=== PATIENT | male | born 1980 | race Caucasian/White ===

== ENCOUNTER → 2018-08-21 | Outpatient (CLI) | payer BC ==
[~2018-08-21] MED LIST: LIDOCAINE/PRILOCAINE 2.5-2.5% KIT ONE
== END ==
LOC: WCC 11:37
PROVIDERS: ATTEND Family Medicine Adult Medicine
DX: S51.801A Unspecified open wound of right forearm, initial encounter (principal); F32.9 Major depressive disorder, single episode, unspecified; I10 Essential (primary) hypertension; W45.8XXA Other foreign body or object entering through skin, initial encounter
CPT/HCPCS: 87071; 87075; 87205

== ENCOUNTER → 2019-05-16 | Outpatient (CLI) | payer BC ==
[~2019-05-16] MED LIST changes: +MUPIROCIN 2% OINT 22 GM TUBE ONE
== END ==
LOC: WCC 12:57
PROVIDERS: ATTEND Family Medicine Adult Medicine
DX: L08.9 Local infection of the skin and subcutaneous tissue, unspecified (principal); S51.801A Unspecified open wound of right forearm, initial encounter; S81.802A Unspecified open wound, left lower leg, initial encounter; I10 Essential (primary) hypertension; B96.89 Other specified bacterial agents as the cause of diseases classified elsewhere; F15.20 Other stimulant dependence, uncomplicated; F32.9 Major depressive disorder, single episode, unspecified; W45.8XXA Other foreign body or object entering through skin, initial encounter
CPT/HCPCS: 87081